=== PATIENT | female | born 2000 | race Caucasian/White ===

== ENCOUNTER 2025-01-05 10:02 | Emergency (ER) | payer OTHER ==
[~2025-01-05] VITALS: Ht 157.5 cm; Wt 75.9 kg
[2025-01-05 10:12] VITALS: BP 119/64; PULSE 65; TEMP 97.8; O2SAT 97
[2025-01-05 10:42] VITALS: RESP 15
[2025-01-05] MEDS: ketorolac trometh 15mg/ml vial 15 MG/ML ML IM ONE (10:42)
[2025-01-05] MEDS ORDERED: BACL10TA2 PO (10:55)
== END 2025-01-05 11:08 | disposition home or self-care (01) ==
LOC: ER 10:03
DX: M43.6 Torticollis (principal)
CPT/HCPCS: 96372; 99283; J1885

== ENCOUNTER 2025-01-21 17:08 | Emergency (ER) | payer OTHER ==
[~2025-01-21] VITALS: Ht 157.5 cm; Wt 66.2 kg
[~2025-01-21 17:08] MED LIST: BACL10TA2 PO
[2025-01-21 17:17] VITALS: BP 113/65; PULSE 81; RESP 15; O2SAT 98
[2025-01-21] MEDS: dexamethasone sod phosphate 10mg/ml inj PO STA (18:26)
[2025-01-21 18:30] VITALS: TEMP 98.4
== END 2025-01-21 18:31 | disposition home or self-care (01) ==
LOC: ER 17:08
DX: J02.9 Acute pharyngitis, unspecified (principal); R05.9 Cough, unspecified; Z79.899 Other long term (current) drug therapy
CPT/HCPCS: 99283; J1100

== ENCOUNTER 2025-09-30 11:52 | Emergency (ER) | payer OTHER ==
[~2025-09-30] VITALS: Ht 157.5 cm; Wt 79.8 kg
[2025-09-30 12:17] VITALS: TEMP 98.3
--- NOTE | 2025-09-30 12:29 | ELECTROCARDIOGRAPH REPORT ---
[facility] Test Date: 2025-09-30 Test Time: 12:27:56 Pat Name: EUGENIA DOMÍNGUEZ Department: EMERGENCY ROOM Patient ID: [facility]-[id number] Room: Gender: F [employer] Work[employer] Representative: [place] : 2000 Requested By: BREEZY TOBIAS Order Number: [id number] Reading MD: Dr. HARSHIL Beltran Measurements Intervals [place] Rate: 91 P: 30 CA: 117 QRS: 80 QRSD: 89 T: 18 QT: 353 QTc: 435 Interpretive Statements Sinus rhythm Borderline short CA interval Borderline T abnormalities, anterior leads Baseline wander in lead(s) II,III,aVF,V5 Electronically Signed On 10-01-2025 16:43:[address] HARSHIL Beltran Please click the below link to view image of tracing.
--- NOTE | 2025-09-30 12:31 | Physician Documentation ---
History of Present Illness ~ Chief Complaint: Dizziness Stated Complaint: DIZZINESS Time Seen by MD: 12:34 HPI This is a 25-year-old female that presents to the emergency department for evaluation of dizziness x2 days. Patient reports that she had 1 episode of this a week ago. Patient reports that she was seen at the urgent care clinic and they told her to report to the emergency department. Patient reports that she has recently started a calorie restricting diet for approximately 3-4 weeks. Patient reports that she suffers from anxiety. Patient reports that she takes clonidine for the anxiety but has not taken any clonidine today. Patient report patient denies any new medications patient denies any chest pain patient denies shortness of breath patient denies headache at this time. Patient denies any other symptoms at this time. Medication Reconciliation Allergies: Coded Allergies: No Known Allergies (Unverified , 09/30/25) Scheduled Baclofen (Baclofen), 1 TAB PO Q8H Meclizine HCl (Meclizine HCl), 1 TAB PO Q12H Review of Systems ROS As stated above in the HPI, otherwise all systems are reviewed and negative. Physical Exam Vital Signs: Temperature: 98.3, Source: Oral, Heart Rate: 86, Respiratory Rate: 18, BP: 122/81, Pulse Oximetry: 98, Weight: 79.800 Oxygen Flow Rate: 0 Physical Exam VITALS: Reviewed and as above. GENERAL: Alert, no apparent distress. HEENT: Normocephalic, atraumatic, PERRL, EOMI, dry mucosa, no erythema RESPIRATORY: Lungs clear, normal breath sounds, no respiratory distress. CHEST: No accessory muscle use, no retractions CV: Regular rate, rhythm, no edema, no murmur, No: JVD GI: Soft, non-tender, bowels sounds present, no rebound, guarding, or rigidity BACK: No CVA tenderness, or swelling MUSCULOSKELETAL No deformities, no edema SKIN: Warm and dry, no rash NEURO: Oriented x4, No motor or sensory deficit PSYCH: Normal mood and affect, no agitation Progress Results/Orders Results/Orders Orders - BRITTANY TOBIAS FRAME BANDER Chest,Single View (09/30/25 12:21) Monitor (09/30/25 12:21) Saline Lock (09/30/25 12:21) Oxygen (09/30/25 12:21) Hs Troponin I W Calculations (09/30/25 15:21) Completed Orders - BRITTANY TOBIAS FRAME BANDER Chest,Single View (09/30/25 12:21) Cbc/Diff (09/30/25 12:21) BMP (09/30/25 12:21) PBNP (09/30/25 12:21) Electrocardiogram (09/30/25 12:21) Hs Troponin I W Calculations (09/30/25 12:21) Hs Troponin I W Calculations (09/30/25 14:21) Hcg, Ur Ql (09/30/25 13:07) Ua W/Microscopic, Cult If Ind (09/30/25 13:29) Normal Saline 1000ml (0.9% Sodium Chlori (09/30/25 14:15) Meclizine Tablets (Antivert Tablet) (09/30/25 15:00) Ketorolac Trometh 15mg/Ml Vial (Toradol (09/30/25 15:45) Ketorolac Trometh 30mg/Ml Vial (Toradol (09/30/25 16:05) Medications Received in ER Medications (Trade) Dose Ordered Sig/Luly Route PRN Reason Start Time Stop Time Status Last Admin Dose Admin Sodium Chloride 1,000 ml @ 1,000 mls/hr ONCE ONCE IV 09/30/25 14:15 09/30/25 15:14 DC 09/30/25 14:47 1,000 MLS/HR (Antivert tablet) 12.5 mg ONCE ONCE PO 09/30/25 15:00 09/30/25 15:01 DC 09/30/25 15:34 12.5 MG (Toradol inj. 30mg/ml) 30 mg ONCE ONCE IV 09/30/25 16:05 09/30/25 16:08 DC 09/30/25 16:23 30 MG Vital Signs 09/30/25 09/30/25 09/30/25 09/30/25 12:17 12:37 12:45 12:49 Temp 98.3 Pulse 86 67 Resp 18 18 14 B/P (MAP) 122/81 102/72 (82) Pulse Ox 98 100 100 O2 Delivery Room Air* O2 Flow Rate 0 0 0 FiO2 21 09/30/25 09/30/25 09/30/25 09/30/25 14:07 15:51 16:23 16:38 Pulse 71 63 Resp 16 16 15 18 B/P (MAP) 108/73 (85) 115/71 (86) Pulse Ox 99 100 O2 Flow Rate 0 0 Laboratory Tests Test 09/30/25 12:40 09/30/25 13:29 09/30/25 14:15 White Blood Count 5.8 Red Blood Count 4.34 Hemoglobin 13.0 Hematocrit 39.7 Mean Corpuscular Volume 91.5 Mean Corpuscular Hemoglobin 30.1 Mean Corpuscular Hemoglobin Concent 32.9 L Red Cell Distribution Width 12.8 Platelet Count 326 Mean Platelet Volume 8.3 Neutrophils (%) (Auto) 66.2 Lymphocytes (%) (Auto) 24.7 Monocytes (%) (Auto) 7.1 Eosinophils (%) (Auto) 1.2 Basophils (%) (Auto) 0.8 Neutrophils # (Auto) 3.8 Lymphocytes # (Auto) 1.4 Monocytes # (Auto) 0.4 Eosinophils # (Auto) 0.1 Basophils # (Auto) 0.0 CBC Comment Sodium Level 142 Potassium Level 3.9 Chloride Level 107 Carbon Dioxide Level 28.4 Anion Gap 7 L Blood Urea Nitrogen 8 Creatinine 0.81 Estimated GFR/1.73 m2 88 BUN/Creatinine Ratio 9.9 L Glucose Level 87 Calcium Level 8.6 Troponin I High Sensitivity 4 5 Pro-B-Type Natriuretic Peptide 110 Albumin 3.6 Chemistry Comments Urine Specimen Description Non-specified Urine Color Yellow Urine Clarity Clear Urine pH 7.0 Urine Specific [place] 1.020 Urine Protein Negative Urine Glucose (UA) Negative Urine Ketones Negative Urine Occult Blood Trace-intact Urine Nitrite Negative Urine Bilirubin Negative Urine Urobilinogen 0.2 Urine Leukocyte Esterase Negative Urine RBC 3-10 Urine WBC 0-4 Urine Squamous Epithelial Cells Moderate Urine Bacteria Few Urine Culture Indicated Not ind Volume Urine Centrifuged 10 ml Urine HCG, Qualitative Negative Urine Comment Troponin I High Sens Percent Delta 25 Troponin I Hi Sens Absolute Change 1 Medical Decision Making Additional information obtaine: other Findings Chief Complaint: Dizziness for two days Medical Decision Making: Number of Diagnoses/Management Options: Moderate complexity. The differential diagnosis for dizziness in this 25-year-old female includes peripheral vestibular etiologies (benign paroxysmal positional vertigo, vestibular neuritis, vestibular migraine), central causes (posterior circulation stroke, cerebellar pathology), orthostatic hypotension related to calorie restriction and dehydration, medication-related dizziness from missed clonidine dose, and migraine-associated dizziness. Amount and Complexity of Data: Moderate complexity. Laboratory diagnostics i ncluding complete metabolic panel and complete blood count were unremarkable, excluding metabolic derangements, anemia, and electrolyte abnormalities. Cardiac workup including ECG was negative, ruling out arrhythmia. Urinalysis was negative, excluding and urinary tract infection. Imaging studies were negative for acute intracranial pathology. Risk of Complications: Low risk. Based on the timing and triggers framework for dizziness evaluation, this patient's presentation is most consistent with sp ontaneous episodic vestibular syndrome, given recurrent episodes of dizziness without clear positional triggers. The differential includes vestibular migraine, given her report of headache with light sensitivity consistent with her usual migraines. Vestibular migraine is the most common cause of spontaneous episodic vestibular syndrome, with a prevalence of 2.7% in adults and occurring more commonly in females at a mean age of 40 years. The patient's recent calorie-restricting diet for 3-4 weeks and missed clonidine dose today are relevant contributing factors. Calorie restriction can lead to dehydration and orthostatic symptoms. Central etiologies were considered but deemed unlikely given the absence of focal neurologic deficits, negative cardiac workup, and negative imaging. In emergency department patients with isolated dizziness, the rate of serious central causes is only 3.2-6%, mostly ischemic stroke. This patient had no high- risk features such as acute neurologic symptoms, significant gait ataxia, or vascular risk factors that would warrant advanced imaging with MRI. Treatment and Response: The patient received symptomatic treatment with ketorolac for headache, one liter of intravenous fluid for presumed dehydration related to calorie restriction, and meclizine 25 mg for vestibular suppression. While vestibular suppressants like meclizine are commonly used, they should be limited to short-term use (several days) as prolonged use may inhibit physiological compensation. The patient's symptoms improved with treatment. Disposition and Plan: The patient is safe for discharge home with close outpatient follow-up. She was advised to: Resume normal clonidine dosing as prescribed Ensure adequate hydration and avoid extreme calorie restriction Use meclizine as needed for dizziness symptoms, but limit to several days Follow up with primary care physician within 3-5 days for further evaluation Consider referral to neurology or otolaryngology if symptoms persist, as vestibular migraine may require preventive therapy with medications such as topiramate, amitriptyline, or propranolol Return to emergency department for worsening symptoms, new neurologic deficits, severe headache different from usual migraines, vision changes, or inability to walk The patient was counseled on lifestyle modifications including adequate rest, regular meals, stress management, and avoidance of migraine triggers. She verbalized understanding of discharge instructions and follow-up plan. Differential Dx:Considerations: Include: anemia, CVA, dehydration, dysrhythmia, electrolyte imbalance, encephalopathy, Guillain-[place], hypoglycemia, hypotension, hypovolemia, labyrinthitis, Meniere's disease, myasathenia gravis, myocardial infarction, pulmonary embolus, renal failure, respiratory failure, TIA, VBI, vertigo central, vertigo peripheral, vestibular neuronitis, other Departure Disposition: HOME / SELF CARE / HOMELESS Impression: Primary Impression: Dizziness Additional Impression: Vertigo Condition: Stable Discharge Instructions: Dizziness, Vertigo Additional Instructions: Your Diagnosis You came to the emergency department with dizziness that has been happening for the past two days. After a thorough evaluation including blood tests, heart monitoring, and imaging, we did not find any serious problems. Your symptoms may be related to a combination of factors including your recent calorie-restricting diet, dehydration, missing your clonidine medication today, and possibly vestibular migraine (a type of migraine that causes dizziness instead of just headache). What We Did in the Emergency Department Gave you fluids through an IV to help with dehydration Gave you Toradol (ketorolac) for your headache Gave you meclizine to help reduce the dizziness Your symptoms improved with this treatment Medications to Take at Home Meclizine: Take as prescribed for your dizziness. This medication helps reduce the spinning sensation and nausea. Important: Only use this medication for a few days (3-5 days maximum). Using it longer can actually make it harder for your body to adjust and recover from dizziness. Clonidine: Continue taking your clonidine exactly as prescribed by your doctor. Do not skip doses, as missing doses can cause dizziness and other symptoms. Pain relief: You may take Tylenol (acetaminophen) or ibuprofen for headaches as needed. Important Lifestyle Changes Making these changes can significantly help reduce your dizziness episodes: Eat regular meals: Do not skip meals. Extreme calorie restriction can cause dizziness and make symptoms worse. Aim for balanced, regular meals throughout the day. Stay hydrated: Drink plenty of water throughout the day (at least 6-8 glasses). Get adequate sleep: Try to get 7-9 hours of restful sleep each night. Good sleep is one of the most important factors in reducing dizziness and headache symptoms. Manage stress: Practice stress-reduction techniques like deep breathing, meditation, or gentle exercise. Avoid triggers: Common triggers for migraine-related dizziness include caffeine, alcohol, certain foods, bright lights, and lack of sleep. What to Expect Your dizziness should gradually improve over the next 24-48 hours with rest, hydration, proper nutrition, and the meclizine medication. You may still feel mildly dizzy or off-balance for a few days as your body adjusts. Move slowly when changing positions (lying to sitting, sitting to standing) to avoid making dizziness worse. When to Return to the Emergency Department Come back to the emergency department immediately if you experience: No improvement in your dizziness after 24-48 hours of treatment Worsening dizziness or new spinning sensations Severe headache that is different from your usual migraines or the worst headache of your life Vision changes such as double vision, vision loss, or seeing flashing lights Difficulty walking or loss of balance Numbness or weakness in your face, arms, or legs Difficulty speaking or slurred speech Chest pain or shortness of breath Fainting or loss of consciousness Persistent vomiting that prevents you from keeping down fluids or medications Follow-Up Care Schedule an appointment with your primary care doctor within 3-5 days. Your doctor may want to: Evaluate whether you have vestibular migraine or another cause of dizziness Adjust your medications if needed Discuss preventive treatments if your dizziness continues Refer you to a specialist (neurologist or ear, nose, and throat doctor) if symptoms persist Important Reminders Do not drive or operate machinery if you feel dizzy Avoid sudden head movements Use handrails when using stairs Keep your home well-lit to prevent falls Resume your normal clonidine schedule immediately Focus on eating regular, balanced meals rather than restricting calories severely If you have any questions or concerns before your follow-up appointment, contact your primary care doctor's office. Most importantly please return to the emergency department if you have any worsening or recurrent symptoms or if her symptoms fail to improve after 24 hours with meclizine. If you are concerned at all please return to the emergency department we will complete additional diagnostics. Referrals: NO PRIMARY CARE PROVIDER (PCP) Prescriptions Meclizine HCl (Meclizine HCl) 12.5 Mg Tablet 1 TAB PO Q12H for dizziness for 10 Days, #20 TAB 0 Refills Prov: BRITTANY TOBIAS 09/30/25 Education Educated: Patient Educated regarding: diagnosis, treatment, need for follow up Signature Scribe Signature: A Attestation: Scribed for Brittany Tobias by MELI Andrade . 09/30/25 16:48 BRITTANY TOBIAS Sep 30, 2025 12:31
--- NOTE | 2025-09-30 12:47 | RADIOLOGY REPORT ---
CHEST RADIOGRAPH INDICATION: CP TECHNIQUE: Single frontal view of the chest was obtained COMPARISON: None FINDINGS: Lines and Tubes: None Lungs: Clear Pleura: No effusion. No pneumothorax. Cardiomediastinal contours: Unremarkable Bones: Unremarkable IMPRESSION: No acute disease.
[2025-09-30 12:56] LABS: MEAN PLATELET VOLUME 8.3 FL (7.4-10.4); RED CELL DISTRIBUTION WIDTH 12.8 % (11.5-14.5)
[2025-09-30 13:15] LABS: CREATININE 0.81 MG/DL (0.40-0.90); PRO BRAIN NATRIURETIC PEPTIDE 110 PG/ML (0-125); TOTAL CARBON DIOXIDE 28.4 MMOL/L (24-32); eCRCL 85 ML/MIN; eGFR 88 ML/MIN
[2025-09-30 14:01] LABS: URINE HCG NEGATIVE (NEG)
[2025-09-30 14:03] LABS: LEUKOCYTE ESTERASE ,URINE NEGATIVE (Neg); OCCULT BLOOD,URINE TRACE-INTACT (Neg)
[2025-09-30 14:06] LABS: UA COLLECTION TYPE NON-SPECIFIED
[2025-09-30 14:07] LABS: NITRITES, URINE NEGATIVE (Neg)
[2025-09-30 14:12] LABS: SQUAMOUS EPITHELIAL CELL,UR MODERATE /LPF (FEW)
[2025-09-30] MEDS: normal saline 1000ml 1,000 ML IV ONE (14:47)
[2025-09-30] MEDS ORDERED: ketorolac trometh 15mg/ml vial 15 MG/ML ML IM ONE (15:45)
[2025-09-30 15:51] VITALS: BP 115/71; PULSE 63; O2SAT 100
[2025-09-30] MEDS ORDERED: MECL-226 PO (16:16)
[2025-09-30] MEDS: ketorolac trometh 30MG/ML vial 30 MG/ML VIAL IV ONE (16:23)
[2025-09-30 17:13] VITALS: RESP 16
== END 2025-09-30 17:25 | disposition home or self-care (01) ==
LOC: ER 11:53
DX: R42 Dizziness and giddiness (principal); F41.9 Anxiety disorder, unspecified; Z79.899 Other long term (current) drug therapy
CPT/HCPCS: 36415; 71045; 80048; 81001; 81025; 83880; 84484; 85025; 93005; 96361; 96374; 99285; J1885; J7030; J8597